=== PATIENT | female | born 1980 | race Caucasian/White ===

== ENCOUNTER → 2021-06-23 15:09 | Outpatient (CLI) | payer OTHER, SELFPAY ==
--- NOTE | 2021-07-07 08:42 | PM.CARDMON.1 ---
Sales Correspondence Clerk Report Referral & Results Date Patient Seen: 06/23/21 Requesting provider: Bernard Vela Indication: Palpitations Duration of monitoring (days): 7 Diary information: There were 141 patient triggered events. These events were associated with (within 45 seconds) barely sinus rhythm, PACs, and PVCs, without evidence of any more significant dysrhythmias ventricular or supraventricular bigeminy or trigeminy. Data: Minimum heart rate was 51 beats per minute at 03:04 on 06/28/2021 Maximum heart rate was 163 beats per minute at 08:54 on 06/25/2021 Less than 1% of identified beats were ventricular or supraventricular ectopic in origin, which would classify them as rare., this includes rare supraventricular couplets Impression: No serious dysrhythmias identified on this study Patient with apparently quite frequent symptomatic events based on over 100 patient triggered items. All of these are variably associated with PACs and PVCs. Overall burden of any ectopy is considered rare Clinical correlation suggested
== END ==
PROVIDERS: Family Provider Physician Assistant Medical; PCP Family Medicine; Referring Provider Family Medicine; Visit Provider Family Medicine
DX: R00.2 Palpitations (principal)
CPT/HCPCS: 93242; 93244

== ENCOUNTER → 2021-06-24 07:31 | Outpatient (CLI) | payer OTHER, SELFPAY ==
--- NOTE | 2021-06-24 07:33 | DI.RAD.S_ITS ---
PROCEDURE: XR KNEE LT 3V INDICATIONS: chronic bilateral knee pain TECHNIQUE: 3 views of the knee were acquired. COMPARISON: None. FINDINGS: Bones: Mild joint space narrowing and degenerative changes medially. No fractures or dislocations. No suspicious bony lesions. Osteophyte of the lateral patella. Soft tissues: No joint effusion. No suspicious soft tissue calcifications. IMPRESSION: Degenerative changes of the medial compartment and medial joint space narrowing. Consider MRI. Dictated by: Gavin Bullock M.D. on 06/24/2021 at 8:19 Approved by: Gavin Bullock M.D. on 06/24/2021 at 8:20
--- NOTE | 2021-06-24 07:33 | DI.RAD.S_ITS ---
PROCEDURE: XR KNEE RT 3V INDICATIONS: chronic right knee pain TECHNIQUE: 3 views of the knee were acquired. COMPARISON: [facility], CR, XR KNEE LT 3V, 06/24/2021, 7:40. FINDINGS: Bones: Mild medial joint space narrowing. Small osteophyte of the lateral patella. No fractures or dislocations. No suspicious bony lesions. Soft tissues: No joint effusion. No suspicious soft tissue calcifications. IMPRESSION: Mild degenerative changes of the medial compartment and medial joint space narrowing. Consider MRI. Dictated by: Gavin Bullock M.D. on 06/24/2021 at 8:20 Approved by: Gavin Bullock M.D. on 06/24/2021 at 8:24
[2021-06-24 08:16] LABS: Add Manual Diff / Slide Review NO; Basophils Absolute Auto 0 /uL (0-100); Basophils Percent Auto 0.3 % (0-2); Eosinophils Absolute Auto 100 /uL (0-450); Eosinophils Percent Auto 2.3 % (2-4); Hematocrit 41.1 % (36-46); Hemoglobin 14.1 g/dL (12.0-16.0); Lymphocytes Absolute Auto 2300 /uL (1100-4500); Lymphocytes Percent Auto 39.4 % (25-40); Mean Corpuscular HGB Conc 34.3 % (30-36); Mean Corpuscular Hemoglobin 32.8 PG (26-34); Mean Corpuscular Volume 95.5 fL (80-100); Monocytes Absolute Auto 400 /uL (0-900); Neutrophils Absolute Auto 3000 /uL (1500-7000); Platelet Count 217 X10^3/uL (150-400); Red Blood Cell Count 4.31 X10^6/uL (4.0-5.2); Red Cell Distribution Width 12.7 % (11.6-14.8); White Blood Cell Count 5.9 X10^3/uL (4.5-11.0)
[2021-06-24 08:35] LABS: Alanine Aminotransferase 17 IU/L (<35); Albumin 4.2 g/dL (3.5-5.0); Albumin Globulin Ratio 1.8 (1.0-2.8); Alkaline Phosphatase 46 U/L (38-126); Aspartate Aminotransferase 23 IU/L (14-36); BUN Creatinine Ratio 16.5 (6-22); Bilirubin Total 0.8 mg/dL (0.2-1.3); Blood Urea Nitrogen 15 mg/dL (7-17); Calcium 9.1 mg/dL (8.4-10.2); Carbon Dioxide 30 mmol/L (22-32); Chloride 104 mmol/L (98-107); Cholesterol 177 mg/dL (140-199); Estimated Glomerular Filt Rate > 60.0 mL/min (>60); Globulin 2.3 g/dL (1.7-4.1); Glucose 94 mg/dL (70-100); HDL Cholesterol 44 mg/dL (40-60); HEMOLYSIS < 15 (0-50); LDL Cholesterol Calculated 107 mg/dL (<100); Potassium 4.2 mmol/L (3.4-5.1); Sodium 139 mmol/L (137-145); Total Protein 6.5 g/dL (6.3-8.2); Triglycerides 131 mg/dL (35-150)
[2021-06-24 08:59] LABS: TSH w/ Reflex to FT4 1.32 uIU/mL (0.47-4.68)
== END ==
PROVIDERS: Family Provider Physician Assistant Medical; PCP Family Medicine; Referring Provider Family Medicine; Visit Provider Family Medicine
DX: G89.29 Other chronic pain (principal); M25.569 Pain in unspecified knee; E03.9 Hypothyroidism, unspecified; G47.19 Other hypersomnia; R00.2 Palpitations
CPT/HCPCS: 36415; 73562; 80053; 80061; 82306; 84443; 85025

== ENCOUNTER → 2021-08-25 17:45 | Outpatient (CLI) | payer OTHER, SELFPAY ==
--- NOTE | 2021-08-25 17:46 | DI.MG.S_ITS ---
BILATERAL DIGITAL SCREENING MAMMOGRAM 3D/2D WITH CAD: 08/25/2021 CLINICAL: Routine screening. Baseline exam. No prior exams were available for comparison. The tissue of both breasts is heterogeneously dense. This may lower the sensitivity of mammography. Current study was also evaluated with a Computer Aided Detection (CAD) system. No significant masses, calcifications, or other findings are seen in either breast. IMPRESSION: NEGATIVE There is no mammographic evidence of malignancy. A 1 year screening mammogram is recommended. This exam was interpreted at Station ID: [id number]. NOTE: For mammograms, a report in lay terms will be sent to the patient. Approximately 15% of breast malignancies will not be visualized mammographically. In the management of a palpable breast mass, a negative mammogram must not discourage biopsy of a clinically suspicious lesion. Electronically Signed By: Ez [email or web address]/lexa:08/26/2021 07:18:17 letter sent: Normal Exam ACR BI-RADS Category 1: Negative 3341F
== END ==
PROVIDERS: Family Provider Physician Assistant Medical; PCP Family Medicine; Referring Provider Family Medicine; Visit Provider Family Medicine
DX: Z12.31 Encounter for screening mammogram for malignant neoplasm of breast (principal)
CPT/HCPCS: 77063; 77067

== ENCOUNTER → 2022-08-15 15:59 | Outpatient (CLI) | payer OTHER, SELFPAY ==
--- NOTE | 2022-08-15 16:03 | DI.MRI.S_ITS ---
PROCEDURE: MR KNEE LT WO CON INDICATIONS: Bi lateral knee pain TECHNIQUE: Noncontrast sagittal PD fast spin echo and T2 fast spin echo with fat saturation, sagittal 3-D FLASH with fat saturation; coronal T1 spin echo and PD fast spin echo with fat saturation, and axial PD fast spin echo with fat saturation through the knee. COMPARISON: None. FINDINGS: Image quality: Excellent. Anterior Cruciate Ligament: Intact. Posterior Cruciate Ligament: Intact. Medial Collateral Ligament: Intact. Lateral Collateral Ligament: Intact. Medial Meniscus: Intact. Lateral Meniscus: Intact. Medial and Lateral Tendons: The semimembranosus tendon insertions and meniscocapsular junction appear intact. Visualized portions of the pes anserinus tendons appear normal. No abnormal bursal fluid. The long and short heads of the biceps femoris tendon appear intact. The popliteus tendon appears intact. No signs of posterolateral corner injury. Iliotibial band appears normal. Anterior Structures: There is borderline patella jer. The quadriceps and patellar tendons appear intact. No patellar subluxation. No femoral trochlear dysplasia or ventral trochlear prominence. Small amount of edema is seen at the superolateral aspect of the infrapatellar fat pad. Bones: No acute trabecular bone injury or fracture. Medial Femorotibial Cartilage: Intact. Lateral Femorotibial Cartilage: Intact. Patellofemoral Cartilage: Moderate to high-grade cartilage loss is seen at the medial facet and median ridge of the patella with subchondral cystic changes. Soft Tissues: A physiologic amount of joint fluid is present. Trace medial popliteal cyst. The musculature surrounding the knee is normal in bulk. A 12 x 6 x 12 mm lobular ganglion cyst is seen adjacent to the medial head of the gastrocnemius muscle origin. IMPRESSION: 1. Small amount of edema is seen at the superolateral aspect of the infrapatellar fat pad, which can be seen in the setting of lateral femoral condyle-patellar tendon friction syndrome. 2. Borderline patella jer. 3. 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 4. Cruciate and collateral ligaments are intact. No meniscal tear. No acute trabecular bone injury. 5. Lobular 12 mm ganglion cyst is seen adjacent to the medial head of the gastrocnemius muscle origin. Approved by: Casimiro Maher M.D. on 08/16/2022 at 9:50
== END ==
PROVIDERS: Family Provider Physician Assistant Medical; PCP Family Medicine; Referring Provider Family Medicine; Visit Provider Family Medicine
DX: M67.462 Ganglion, left knee (principal); M94.262 Chondromalacia, left knee; M25.562 Pain in left knee; M25.561 Pain in right knee; G89.29 Other chronic pain
CPT/HCPCS: 73721

== ENCOUNTER → 2022-09-01 15:37 | Outpatient (CLI) | payer OTHER, SELFPAY ==
--- NOTE | 2022-09-01 15:38 | DI.MG.S_ITS ---
BILATERAL DIGITAL SCREENING MAMMOGRAM 3D/2D WITH CAD: 09/01/2022 CLINICAL: Routine screening. Comparison is made to exam dated: 08/25/2021 mammogram - [facility]. Both breasts are heterogeneously dense, which may obscure small masses (category c / 51-75% glandular tissue). Current study was also evaluated with a Computer Aided Detection (CAD) system. No significant masses, calcifications, or other findings are seen in either breast. There has been no significant interval change. IMPRESSION: NEGATIVE There is no mammographic evidence of malignancy. A 1 year screening mammogram is recommended. Based on the Tyrer Cuzick model (a risk assessment model) the patient's lifetime risk is 11.6% and her 10 year risk is 1.6%. According to the ACR, ACS, and NCCN guidelines, an annual breast MRI exam along with mammogram is recommended if the patient's lifetime risk is 20% or greater. This exam was interpreted at Station ID: [id number]. NOTE: For mammograms, a report in lay terms will be sent to the patient. Approximately 15% of breast malignancies will not be visualized mammographically. In the management of a palpable breast mass, a negative mammogram must not discourage biopsy of a clinically suspicious lesion. Electronically Signed By: Tracy [email or web address]/lexa:09/01/2022 17:43:58 letter sent: Normal Exam ACR BI-RADS Category 1: Negative 3341F
== END ==
PROVIDERS: Family Provider Physician Assistant Medical; PCP Family Medicine; Referring Provider Family Medicine; Visit Provider Family Medicine
DX: Z12.31 Encounter for screening mammogram for malignant neoplasm of breast (principal)
CPT/HCPCS: 77063; 77067

== ENCOUNTER → 2023-12-28 15:26 | Outpatient (CLI) | payer OTHER, SELFPAY ==
--- NOTE | 2023-12-28 15:28 | DI.MG.S_ITS ---
BILATERAL DIGITAL SCREENING MAMMOGRAM 3D/2D WITH CAD: 12/28/2023 CLINICAL: Routine screening. Comparison is made to exams dated: 09/01/2022 mammogram and 08/25/2021 mammogram - [facility]. Both breasts are heterogeneously dense, which may obscure small masses (category c / 51-75% glandular tissue). Current study was also evaluated with a Computer Aided Detection (CAD) system. No significant masses, calcifications, or other findings are seen in either breast. There has been no significant interval change. IMPRESSION: NEGATIVE There is no mammographic evidence of malignancy. A 1 year screening mammogram is recommended. Based on the Tyrer Cuzick model (a risk assessment model) the patient's lifetime risk is 11.6% and her 10 year risk is 1.8%. According to the ACR, ACS, and NCCN guidelines, an annual breast MRI exam along with mammogram is recommended if the patient's lifetime risk is 20% or greater. This exam was interpreted at Station ID: [id number]. NOTE: For mammograms, a report in lay terms will be sent to the patient. Approximately 15% of breast malignancies will not be visualized mammographically. In the management of a palpable breast mass, a negative mammogram must not discourage biopsy of a clinically suspicious lesion. Electronically Signed By: Tracy kaplan/lexa:12/28/2023 17:32:39 letter sent: Normal Exam ACR BI-RADS Category 1: Negative 3341F
== END ==
PROVIDERS: Family Provider Physician Assistant Medical; PCP Family Medicine; Referring Provider Family Medicine; Visit Provider Family Medicine
DX: Z12.31 Encounter for screening mammogram for malignant neoplasm of breast (principal); R92.333 Mammographic heterogeneous density, bilateral breasts
CPT/HCPCS: 77063; 77067

== ENCOUNTER 2024-08-08 07:42 | Emergency (ER) | payer OTHER, SELFPAY ==
[2024-08-08] VITALS (11 sets, daily range): BP systolic 107–131; BP diastolic 62–72; PULSE 66–71; RESP 16; TEMP 36.4; O2SAT 92–100; BMI 26.7
--- NOTE | 2024-08-08 08:01 | ED.GENADULT ---
HPI - General Adult General Chief complaint: Abdominal Pain Stated complaint: abd pain Time Seen by Provider: 08/08/24 08:01 Source: patient Mode of arrival: Ambulatory Limitations: no limitations History of Present Illness HPI narrative: Patient is a 43-year-old female. Had a colonoscopy approximately 15 years ago. She states she had ?stomach issues? in her 20s and 30s which prompted the colonoscopy. She states that she had polyps but no other specific diagnosis was found. Three days ago she was out of state traveling. She stated that she started to have left-sided abdominal pain that has now progressed to be generalized abdominal pain. Discomfort is worse in certain positions and also with palpation. She was still having bowel movements. Still urinating without any dysuria. No vaginal bleeding. No chest pain or shortness of breath. Subjective fevers. No nausea vomiting. Related Data Home Medications Medication Instructions Recorded Confirmed allergy shots IM QWEEK 06/22/21 06/22/21 azelastine 205.5 mcg (0.15 %) 2 spray intranasal DAILY 06/22/21 06/22/21 nasal spray multivitamin with minerals-folic tab PO 06/22/21 06/22/21 acid 200 mcg chewable tablet Previous Rx's Medication Instructions Recorded ciprofloxacin HCl 500 mg tablet 500 mg PO BID 10 days #20 tabs 08/08/24 (Cipro) metronidazole 500 mg tablet 500 mg PO TID 10 days #30 tabs 08/08/24 Allergies Allergy/AdvReac Type Severity Reaction Status Date / Time Amoxicillin Allergy Unknown Uncoded 01/02/18 12:55 SULFA (sulfonamide) Allergy Unknown Uncoded 01/02/18 12:55 Review of Systems Review of Systems ROS Unobtainable: All systems reviewed & are unremarkable except as noted in HPI and below Patient History Medical History Allergies (~1993) Chicken pox (~1985) Excessive daytime sleepiness Hypothyroidism Palpitations Surgical History (Updated 06/24/21 @ 22:30 by Courtney Alan) Anesthesia History of foot surgery (~2011) History of tonsillectomy (~2009) History of adenoidectomy (~1985) Family History (Updated 06/24/21 @ 22:33 by Courtney Alan) Father Cancer Mother Hypertension Hyperlipidemia Grandfather Lymphoma Colon cancer Hypertension Hyperlipidemia History of heart disease Grandmother History of heart disease Hyperlipidemia Hypertension Social History Smoking Status: Never smoker Smoking Status: Never smoker alcohol intake frequency: a few times a week Substance Use Type: does not use Exam Initial Vital Signs Initial Vital Signs: Vital Signs Pulse Oximetry 95 08/08/24 07:48 Const General: cooperative, comfortable and No ill appearing HENMT Head: normal to inspection and normocephalic Resp Effort & Inspection: normal respiratory effort Auscultation: clear to auscultation bilaterally Cardio Rate: regular rate Rhythm: regular rhythm GI Inspection: normal to inspection and non-distended Palpation: soft, No firm, No guarding and tender Skin General: no rashes or lesions noted Neuro General: patient alert, patient awake and moves all extremities Extrem General: normal to inspection and capillary refill normal Course Orders Ordered: ED Orders 08/08/24 07:50 Urine Culture Stat Urine Microscopic Stat 08/08/24 08:02 CT abdomen pelvis w con Stat 08/08/24 08:16 Complete Blood Count AUTO DIFF Stat Comprehensive Metabolic Panel Stat Lipase Stat Vital Signs Vital signs: Vital Signs - 8 hr 08/08/24 07:48 08/08/24 07:49 08/08/24 07:49 Temperature Pulse Rate 71 Respiratory Rate Blood Pressure 126/70 Pulse Oximetry 95 99 Oxygen Delivery Method 08/08/24 07:53 08/08/24 08:11 08/08/24 08:11 Temperature 97.5 F L Pulse Rate 68 67 Respiratory Rate 16 Blood Pressure 126/70 117/70 Pulse Oximetry 99 97 Oxygen Delivery Method Room Air 08/08/24 08:30 08/08/24 08:31 08/08/24 09:10 Temperature Pulse Rate 70 68 Respiratory Rate Blood Pressure 130/63 Pulse Oximetry 97 98 Oxygen Delivery Method 08/08/24 09:30 08/08/24 09:56 08/08/24 09:57 Temperature Pulse Rate 68 66 Respiratory Rate Blood Pressure 107/62 Pulse Oximetry 92 100 Oxygen Delivery Method 08/08/24 09:58 Temperature Pulse Rate Respiratory Rate Blood Pressure 131/72 Pulse Oximetry Oxygen Delivery Method Medical Decision Making Lab Data Lab results reviewed: Yes I reviewed the patient's lab results. 08/08/24 08:16 08/08/24 08:16 Labs: Lab Results 08/08/24 08/08/24 Range/Units 07:50 08:16 WBC 6.5 (4.5-11.0) X10^3/uL RBC 4.09 (4.0-5.2) X10^6/uL Hgb 13.4 (12.0-16.0) g/dL Hct 39.2 (36-46) % MCV 95.8 (80-100) fL MCH 32.9 (26-34) PG MCHC 34.3 (30-36) % RDW 12.8 (11.6-14.8) % Plt Count 209 (150-400) X10^3/uL Neut % (Auto) 63.3 (50-75) % Lymph % (Auto) 29.6 (25-40) % Steele % (Auto) 5.5 (3-14) % Eos % (Auto) 1.3 L (2-4) % Baso % (Auto) 0.3 (0-2) % Neut # (Auto) 4100 (9969-7094) /uL Lymph # (Auto) 1900 (2939-6766) /uL Steele # (Auto) 400 (0-900) /uL Eos # (Auto) 100 (0-450) /uL Baso # (Auto) 0 (0-100) /uL Sodium 137 (137-145) mmol/L Potassium 4.0 (3.4-5.1) mmol/L Chloride 107 (98-107) mmol/L Carbon Dioxide 23 (22-32) mmol/L BUN 11 (7-17) mg/dL Creatinine 0.85 (0.52-1.04) mg/dL Estimated GFR > 60 (>60) mL/min BUN/Creatinine Ratio 12.9 (6-22) Glucose 98 (70-100) mg/dL Calcium 8.8 (8.4-10.2) mg/dL Total Bilirubin 0.6 (0.2-1.3) mg/dL AST 24 (14-36) IU/L ALT 17 (<35) IU/L Alkaline Phosphatase 34 L (38-126) U/L Total Protein 6.9 (6.3-8.2) g/dL Albumin 4.0 (3.5-5.0) g/dL Globulin 2.9 (1.7-4.1) g/dL Albumin/Globulin Ratio 1.4 (1.0-2.8) Lipase 33 (23-300) U/L Urine RBC 1-5/hpf (0-5/HPF) Urine WBC 1-5/hpf (0-5/HPF) Ur Squamous Epith Cells 1-5 /hpf (0-5/HPF) Urine Bacteria Moderate (10-30) H (None) Ur Culture Indicated? Specimen cultured Vol Urine Centrifuged 10ml (spun) Point of Care Testing Test Results Negative Urine Dip Bedside Urine Glucose Negative Bedside Urine Bilirubin - Negative Bedside Urine Ketone +/- 5 Urine Specific [place]alla 1.010 Bedside Urine Occult Blood ++ Bedside Urine pH 7.0 Bedside Urine Protein - Negative Bedside Urine Urobilinogen - Negative Bedside Urine Nitrite - Negative Bedside Urine Leukocytes +/- 15 Esterase Point of care testing: Point of Care Testing Test Results Negative Urine Dip Bedside Urine Glucose Negative Bedside Urine Bilirubin - Negative Bedside Urine Ketone +/- 5 Urine Specific [place]alla 1.010 Bedside Urine Occult Blood ++ Bedside Urine pH 7.0 Bedside Urine Protein - Negative Bedside Urine Urobilinogen - Negative Bedside Urine Nitrite - Negative Bedside Urine Leukocytes +/- [address] scan - abdomen/pelvis: Radiologist's Impression: PROCEDURE: CT ABDOMEN PELVIS W CON INDICATIONS: Left lower quadrant abdominal pain TECHNIQUE: After the administration of intravenous contrast, axial sections acquired from the lung bases to the pubic symphysis. Coronal and sagittal reformats were performed. For radiation dose reduction, the following was used: automated exposure control, adjustment of mA and/or kV according to patient size. COMPARISON: None. FINDINGS: Image quality: Diagnostic. Lower Chest: No significant findings. ABDOMEN: Liver: No solid mass. Gallbladder: No radiopaque gallstones or wall thickening. Biliary ducts: No biliary dilation. Pancreas: No ductal dilation. Spleen: Size is within normal limits. Adrenal Glands: No adrenal nodules. Kidneys and Ureters: No hydronephrosis. No solid mass. No complex renal cystic lesion which requires follow up. Stomach and Bowel: The sigmoid colon has a diffuse inflamed appearance focally most notably in the area what appears to be an inflamed diverticulum with inflammatory change in the adjacent fat. Findings likely represent acute sigmoid diverticulitis. Reference axial images 102-107 of series 2. Cannot exclude underlying lesion. The lumen narrows in this location. Reference axial image 108 of series 2. The remainder of the colon is normal in appearance except for the appendix. The appendix has pockets of air. However, other areas are fluid containing and there is enhancement of the wall and mild inflammatory change in the adjacent fat. Reference coronal images 48 through 53 series 3. The appendix measures approximately 7.2 mm. Peritoneum: No abnormal intraperitoneal fluid. No free air. Ventral Wall: No significant ventral hernia. Abdominal Nodes: No retroperitoneal or mesenteric adenopathy by size criteria. Vessels: Aorta and inferior vena cava are normal in size. PELVIS: Pelvic Organs: IUD. Partially collapsed enhancing right ovarian cyst.. Bladder: No bladder wall thickening, accounting for underdistention. Pelvic Nodes: No enlarged lymph nodes. Miscellaneous: No inguinal hernias are seen. Bones: No aggressive osseous abnormality. IMPRESSION: 1. Findings in the sigmoid colon likely represent uncomplicated sigmoid diverticulitis. Recommend direct visualization utilizing colonoscopy after acute symptoms resolve to exclude underlying lesion. 2. Although there are pockets of air in the appendix, overall, the appendix looks somewhat dilated and inflamed, with enhancement of the wall and mild inflammation in the surrounding fat. Cannot exclude early changes of acute appendicitis or a chronically inflamed appendix. Recommend clinical correlation and possible imaging follow-up. [facility] Narrative Medical decision making narrative: No leukocytosis. Her history and physical exam is most consistent with diverticulitis and there is findings an uncomplicated acute diverticulitis noted on the CT scan. There was also some question the CT scan about potential early appendicitis. She was mild tenderness over her right lower quadrant but expresses that the majority of her pain is in her left lower quadrant. We discussed the possibility of a Co infection such as appendicitis but I feel that this is unlikely based on her exam today. Will place her on oral antibiotics and treatment for diverticulitis. I advised that she follow up with General surgery when her symptoms are better. We discussed specific return precautions. She expressed understanding and agreement with plan. Discharge Plan Departure Patient Disposition: Home Clinical Impression: Diverticulitis Instructions: DI for Diverticulitis Activity Restrictions/Additional Instructions: Take the antibiotics as directed. I do recommend a bland diet for the next couple days. Be sure that you were increasing your fluid intake. You can take Tylenol and or ibuprofen for discomfort. I do recommend a follow-up with General surgery to discuss the indications for repeat colonoscopy once this infection is treated. Return to the emergency department for new or worsening symptoms. Prescriptions: New ciprofloxacin HCl [Cipro] 500 mg tablet 500 mg PO BID 10 Days Qty: 20 0RF metronidazole 500 mg tablet 500 mg PO TID 10 Days Qty: 30 0RF No Action azelastine 205.5 mcg (0.15 %) spray,non-aerosol 2 spray intranasal DAILY Rx Instructions: administer into each nostril allergy shots IM QWEEK multivit with min-folic acid 200 mcg tablet,chewable PO Referrals: Stevie Lopez MD [Physician] - Bernard Vela MD [Primary Care Provider] - Stand Alone Forms: Patient Portal/API/Survey
[2024-08-08 08:09] LABS: Urine Volume 10mL (spun)
[2024-08-08 08:13] LABS: RBC Urine 1-5/HPF (0-5/HPF); WBC Urine 1-5/HPF (0-5/HPF)
[2024-08-08 08:14] LABS: Bacteria Urine Moderate (10-30); Culture Indicated Urine Specimen Cultured; Squamous Epithelial Cell Urine 1-5 /HPF (0-5/HPF)
[2024-08-08 08:39] LABS: Add Manual Diff / Slide Review NO; Basophils Absolute Auto 0 /uL (0-100); Basophils Percent Auto 0.3 % (0-2); Eosinophils Absolute Auto 100 /uL (0-450); Eosinophils Percent Auto 1.3 % (2-4); Hematocrit 39.2 % (36-46); Hemoglobin 13.4 g/dL (12.0-16.0); Lymphocytes Absolute Auto 1900 /uL (1100-4500); Lymphocytes Percent Auto 29.6 % (25-40); Mean Corpuscular HGB Conc 34.3 % (30-36); Mean Corpuscular Hemoglobin 32.9 PG (26-34); Mean Corpuscular Volume 95.8 fL (80-100); Monocytes Absolute Auto 400 /uL (0-900); Monocytes Percent Auto 5.5 % (3-14); Neutrophils Absolute Auto 4100 /uL (1500-7000); Neutrophils Percent Auto 63.3 % (50-75); Platelet Count 209 X10^3/uL (150-400); Red Blood Cell Count 4.09 X10^6/uL (4.0-5.2); Red Cell Distribution Width 12.8 % (11.6-14.8); White Blood Cell Count 6.5 X10^3/uL (4.5-11.0)
[2024-08-08 08:50] LABS: Alanine Aminotransferase 17 IU/L (<35); Albumin Globulin Ratio 1.4 (1.0-2.8); Alkaline Phosphatase 34 U/L (38-126); Aspartate Aminotransferase 24 IU/L (14-36); BUN Creatinine Ratio 12.9 (6-22); Bilirubin Total 0.6 mg/dL (0.2-1.3); Blood Urea Nitrogen 11 mg/dL (7-17); Calcium 8.8 mg/dL (8.4-10.2); Carbon Dioxide 23 mmol/L (22-32); Chloride 107 mmol/L (98-107); Estimated Glomerular Filt Rate > 60 mL/min (>60); Globulin 2.9 g/dL (1.7-4.1); Glucose 98 mg/dL (70-100); HEMOLYSIS 15 (0-50); Lipase 33 U/L (23-300); Sodium 137 mmol/L (137-145); Total Protein 6.9 g/dL (6.3-8.2)
== END 2024-08-08 10:14 | disposition home or self-care (01) ==
PROVIDERS: Emergency Provider Emergency Medicine; PCP Family Medicine
DX: K57.32 Diverticulitis of large intestine without perforation or abscess without bleeding (principal); R50.9 Fever, unspecified
CPT/HCPCS: 36415; 74177; 80053; 81003; 81015; 81025; 83690; 85025; 87086; 99284; Q9967

== ENCOUNTER 2024-10-23 06:55 | Day surgery (SDC) | payer OTHER, SELFPAY ==
[2024-10-23 07:13] VITALS: BP 121/81; PULSE 75; RESP 16; TEMP 36.8; O2SAT 97; BMI 26.6
[2024-10-23] MEDS: SODIUM CHLORIDE 0.9% 1,000 ML 150 ML IV (07:22)
--- NOTE | 2024-10-23 08:38 | PM.HP.IH.1 ---
History of Present Illness History of Present Illness Date Patient Seen: 10/23/24 Time Patient Seen: 08:38 Chief complaint: Dx Colonoscopy w/poss bx Narrative: Vonda is a 44-year-old woman who has had a bout of diverticulitis. See the office note from August for details. [facility] Medical History Allergies (~1993) Chicken pox (~1985) Excessive daytime sleepiness Hypothyroidism Palpitations Surgical History (Updated 06/24/21 @ 22:30 by Courtney Alan) Anesthesia History of foot surgery (~2011) History of tonsillectomy (~2009) History of adenoidectomy (~1985) Family History (Updated 06/24/21 @ 22:33 by Courtney Alan) Father Cancer Mother Hypertension Hyperlipidemia Grandfather Lymphoma Colon cancer Hypertension Hyperlipidemia History of heart disease Grandmother History of heart disease Hyperlipidemia Hypertension Social History Smoking Status: Never smoker Meds Home Medications and Allergies Home Medications Medication Instructions Recorded Confirmed Type multivitamin with minerals-folic tab PO 06/22/21 06/22/21 History acid 200 mcg chewable tablet sodium,potassium,mag sulfates 17.5 See Rx Instructions PO .COMPLEX 09/01/24 09/01/24 Rx gram-3.13 gram-1.6 gram oral soln #354 mL (Suprep Bowel Prep Kit) thyroid (pork) 60 mg tablet (RECTIFICATION PRINTER 60 mg PO DAILY 09/01/24 09/01/24 History Thyroid) Allergies Allergy/AdvReac Type Severity Reaction Status Date / Time Amoxicillin Allergy Unknown Uncoded 10/23/24 07:25 SULFA (sulfonamide) Allergy Unknown Uncoded 10/23/24 07:25 Exam Vital Signs (past 8 hours): - 10/23/24 07:13 Temperature 98.3 F Pulse Rate 75 Respiratory Rate 16 Blood Pressure 121/81 Pulse Oximetry 97 Oxygen Delivery Method Room Air Oxygen Delivery Method Room Air Const General: healthy appearing Resp Effort & Inspection: normal respiratory effort Assessment & Plan Assessment and plan (1) Colon cancer screening: Status: Acute Plan Colonoscopy Time-Based Coding :: [TOTAL MINUTES] spent with patient and on the chart (including review of chart, obtaining history, exam, reviewing outside data, placing orders, documenting exam and treatment plan, and counseling patient) on [DATE]. [facility] [employer] Document charge(s): No
[2024-10-23 09:23] VITALS: BP 101/66; PULSE 77; RESP 24; TEMP 36.5; O2SAT 96
[2024-10-23 09:27] VITALS: BP 107/62; PULSE 71; RESP 12; O2SAT 97
--- NOTE | 2024-10-23 09:27 | PM.OP.COLON ---
Operative Date/Time/Diagnoses Date of procedure: 10/23/24 Time of procedure: 09:27 Pre-op diagnosis: Diverticulitis Post-op diagnosis: same Procedure & Clinicians Study performed: Colonoscopy Same procedure as scheduled: Yes Surgeon: Stevie Lopez Procedure Notes Procedure in detail: Surgeon: Stevie Lopez MD Anesthesia: Ninoska Jo CRNA Procedure: The patient was brought to the endoscopy suite, placed in left lateral decubitus position. The patient was connected to monitoring devices. A time-out was performed. Sedation was administered. Once the patient was adequately sedated, a digital rectal exam was performed and was normal. The scope was then inserted and advanced to the cecum where the appendiceal orifice was identified and photographed. The scope was then slowly withdrawn over greater than 6 minutes. The mucosa was thoroughly inspected. There were few scattered diverticula in the sigmoid colon but no obvious diverticulitis. No polyps were found. The scope was retroflexed in the rectum. No other abnormalities were seen. The scope was straightened and removed. The patient was awakened and brought to recovery. Scope withdrawal time: 7 minutes Sedation time: 30 minutes EBL: 0 Findings: Rare sigmoid diverticulosis Post-procedure Recommendations: Colonoscopy in 10 years Disposition: PACU
[2024-10-23 09:33] VITALS: BP 110/67; PULSE 75; RESP 22; TEMP 36.5; O2SAT 98
[2024-10-23 09:36] VITALS: BP 110/68; PULSE 73; RESP 18; O2SAT 98
== END 2024-10-23 09:57 | disposition home or self-care (01) ==
PROVIDERS: PCP Family Medicine; Referring Provider Surgery; Visit Provider Surgery
PROC: 0DJD8ZZ Inspection of Lower Intestinal Tract, Via Natural or Artificial Opening Endoscopic (ICD-10-PCS; CPT 45378; principal; 2024-10-23 08:15)
DX: K57.30 Diverticulosis of large intestine without perforation or abscess without bleeding (principal); E03.9 Hypothyroidism, unspecified
CPT/HCPCS: 45378; J2704

== ENCOUNTER → 2025-03-03 13:11 | Outpatient (CLI) | payer OTHER, SELFPAY ==
--- NOTE | 2025-03-03 13:12 | DI.MG.S_ITS ---
MM screening mammo BI: 03/03/2025. BI-RADS: 1 CLINICAL: 44-year old female for bilateral screening mammogram. Tyrer-Cuzick lifetime risk of 6.1%. No personal or first-degree family history of breast cancer. PRIOR EXAMS 12/28/2023, 09/01/2022, 08/25/2021. MAMMOGRAPHY TECHNIQUE: 2D and 3D (tomosynthesis) digital mammographic views obtained, with additional images as needed for full coverage. Current study was also evaluated with a Computer Aided Detection (CAD) system. DENSITY B. There are scattered areas of fibroglandular density. MAMMOGRAPHY FINDINGS Bilateral: No suspicious mass, asymmetry, microcalcification, or other abnormality seen. IMPRESSION: * No evidence of malignancy. RECOMMENDATIONS Bilateral * Annual screening mammography. OVERALL ASSESSMENT CATEGORY BI-RADS-1: Negative. The [employer] recommends annual screening mammography beginning at age 40 for women with average risk of breast cancer. ELECTRONICALLY SIGNED: Jerome Barger M.D. on 03/03/2025 at 09:08:10 PM PT Interpreting Station ID: [id number]
== END ==
LOC: MAMMO 13:11
PROVIDERS: PCP Family Medicine; Referring Provider Family Medicine; Visit Provider Family Medicine
DX: Z12.31 Encounter for screening mammogram for malignant neoplasm of breast (principal)
CPT/HCPCS: 77063; 77067